=== PATIENT | female | born 1955 | race Caucasian/White ===

== ENCOUNTER 2016-09-24 13:17 | Emergency (ER) | payer BC ==
[2016-09-24] MEDS: NS 0.9% 1000 ML* 2,000 ML IV ONE ×2 (17:11→18:12)
[2016-09-24 17:18] LABS: Hematocrit 43 % (35-47); Hemoglobin 13.9 g/dl (12.0-16.0); Mean Corpuscular HGB Conc 33 g/dl (31-36); Mean Corpuscular Hemoglobin 29 pg (27-31); Mean Corpuscular Volume 90 fL (80-97); Mean Platelet Volume 11 um3 (7.4-10.4); Red Blood Count 4.75 10^6/ul (4.0-5.4); Red Cell Distribution Width 15 % (10.5-15); White Blood Count 5.7 10^3/ul (3.5-10.8)
[2016-09-24 17:34] LABS: Albumin 4.5 g/dL (3.2-5.2); BUN/Creatinine Ratio 19.5 (8-20); C Reactive Protein 2.94 mg/L (< 5.00); Calcium 9.2 mg/dL (8.6-10.3); EGFR African American 98.3 (>60); EGFR Non-African American 76.5 (>60); Globulin 2.7 g/dL (2-4); Potassium 3.6 mmol/L (3.5-5.0); Total Bilirubin 0.3 mg/dL (0.2-1.0); Total Protein 7.2 g/dL (6.4-8.9)
--- NOTE | 2016-09-24 20:43 | ED ---
Johny Whitten Michael, scribed for Kentrell Hale MD on 09/24/16 at 1703 . GI/ HPI - HPI Summary HPI Summary: 60 y/o female comes to the ED presenting with diarrhea for the last 3 weeks. The pt describes her diarrhea as "watery" and has had 9 episodes of diarrhea today. She experiences cramping if she does not have a BM. She states nml urination and denies abd pain. The pt has not recently traveled or been prescribed abx. The PMHx is significant for fibromyalgia. - History of Current Complaint Chief Complaint: EDNauseaVomitDiarrh Time Seen by Provider: 09/24/16 16:45 Stated Complaint: DIARRHEA Hx Obtained From: Patient, Medical Records Onset/Duration: Started Weeks Ago, Still Present Timing: Constant Severity: Moderate Current Severity: Moderate Pain Intensity: 0 Associated Signs and Symptoms: Positive: Diarrhea - with cramping. Negative: Abdominal Pain, UTI Symptoms - Allergy/Home Medications Allergies/Adverse Reactions: Allergies Allergy/AdvReac Type Severity Reaction Status Date / Time Sulfa Drugs Allergy Intermediate Hives Verified 09/24/16 13:19 ADHESIVES Allergy RASH, Uncoded 09/24/16 13:19 ITCHING PMH/Surg Hx/FS Hx/Imm Hx Endocrine/Hematology History: Reports: Hx Thyroid Disease - HYPO Denies: Hx Diabetes Cardiovascular History: Reports: Hx Angina, Hx Hypercholesterolemia - CONTROLLED ITH MEDS Denies: Hx Hypertension, Hx Pacemaker/ICD, Other Cardiovascular Problems/ Disorders Respiratory History: Denies: Hx Asthma, Hx Chronic Obstructive Pulmonary Disease (COPD), Other Respiratory Problems/Disorders GI History: Reports: Hx Gall Bladder Disease - CHOLICYSECTOMY, Other GI Disorders - ULCERATIVE COLITIS Denies: Hx Ulcer History: Reports: Hx Kidney Infection - IN THE PAST, Hx Kidney Stones - RIGHT KIDNEY NOW Denies: Hx Dialysis, Hx Renal Disease Musculoskeletal History: Reports: Hx Arthritis, Hx Fibromyalgia, Other Musculoskeletal History - NECK PROBLEMS Sensory History: Reports: Hx Cataracts - SHERLY, Hx Contacts or Glasses - GLASSES Denies: Hx Eye Injury, Hx Hearing Aid, Hx Hearing Problem Opthamlomology History: Reports: Hx Cataracts - SHERLY, Hx Contacts or Glasses - GLASSES Denies: Hx Eye Injury Neurological History: Reports: Hx Nerve Disease - FIBROMYALGIA, Other Neuro Impairments/Disorders - neck problems- genevieve kern md Denies: Hx Dementia, Hx Developmental Delay, Hx Headaches, Hx Migraine, Hx Seizures, Hx Spinal Cord Injury, Hx Transient Ischemic Attacks (TIA) Psychiatric History: Reports: Hx Anxiety - ON MEDS, Hx Depression - ON MEDS Denies: Hx Panic Disorder, Hx Suicide Attempt, Hx of Violent Episodes Against Others, Hx Substance Abuse - Cancer History Cancer Type, Location and Year: SKIN CANCER, basal cell and sqaumous cell Hx Chemotherapy: No Hx Radiation Therapy: No Hx Palliative Cancer Treatment: No - Surgical History Surgery Procedure, Year, and Place: LEFT AND RIGHT CARPAL TUNNEL 09/2012 , [facility] [place]. 1986, 1989, [place] GALLBLADDER, , [facility] [place] RIGHT LEG 2013. [place], [place], [place] CAT[place]ACT[place] 09/25/13 LEFT. 2013, RIGHT CATARACT, [facility] [place]. SKIN CANCER LEGS, NOSE, SHOULDER. R KNEE MENISCUS REPAIR--2012. SKIN CA-MOH'S PROCEDURE-2006 [facility] [place] Hx Anesthesia Reactions: No Infectious Disease History: Yes Infectious Disease History: Denies: Hx Clostridium Difficile, Hx Hepatitis, Hx Human Immunodeficiency Virus (HIV), Hx of Known/Suspected MRSA, Hx Shingles, Hx Tuberculosis, Hx Known/ Suspected VRE, Hx Known/Suspected VRSA, History Other Infectious Disease, Traveled Outside the [place] in Last 30 Days - Family History Known Family History: Positive: Cardiac Disease, Other - breast cancer - Social History Occupation: Employed Full-time Lives: With Family Alcohol Use: None Substance Use Type: Reports: None Smoking Status (MU): Former Smoker Type: Cigarettes Amount Used/How Often: PACK A DAY Have You Smoked in the Last Year: No Review of Systems Negative: Fever Positive: Diarrhea. Negative: Abdominal Pain Positive: no symptoms reported All Other Systems Reviewed And Are Negative: Yes Physical Exam Triage Information Reviewed: Yes Vital Signs On Initial Exam: Initial Vitals Temp Pulse Resp BP Pulse Ox 99.1 F 86 16 113/67 100 09/24/16 13:19 09/24/16 13:19 09/24/16 13:19 09/24/16 13:19 09/24/16 13:19 Vital Signs Reviewed: Yes Appearance: Positive: No Pain Distress, Obese Skin: Positive: Warm, Skin Color Reflects Adequate Perfusion, Dry, Other - tents back of hand Head/Face: Positive: Normal Head/Face Inspection Eyes: Positive: Normal ENT: Positive: Other - dry oral mucosa Neck: Positive: Supple, Nontender Respiratory/Lung Sounds: Positive: Clear to Auscultation, Breath Sounds Present Cardiovascular: Positive: RRR Abdomen Description: Positive: Nontender, Soft Bowel Sounds: Positive: Present Musculoskeletal: Positive: Normal, Other Neurological: Positive: Normal Psychiatric: Positive: Normal, Affect/Mood Appropriate Diagnostics - Vital Signs Vital Signs Temp Pulse Resp BP Pulse Ox 09/24/16 13:19 99.1 F 86 16 113/67 100 - Laboratory Lab Results: Lab Results 09/24/16 09/24/16 Range/Units 17:09 17:09 WBC 5.7 (3.5-10.8) 10^3/ul RBC 4.75 (4.0-5.4) 10^6/ul Hgb 13.9 (12.0-16.0) g/dl Hct 43 (35-47) % MCV 90 (80-97) fL MCH 29 (27-31) pg MCHC 33 (31-36) g/dl RDW 15 (10.5-15) % Plt Count 169 (150-450) 10^3/ul MPV 11 H (7.4-10.4) um3 Neut % (Auto) 51.8 (38-83) % Lymph % (Auto) 34.1 (25-47) % Mccracken % (Auto) 10.8 H (1-9) % Eos % (Auto) 2.2 (0-6) % Baso % (Auto) 1.1 (0-2) % Absolute Neuts (auto) 2.9 (1.5-7.7) 10^3/ul Absolute Lymphs (auto) 1.9 (1.0-4.8) 10^3/ul Absolute Monos (auto) 0.6 (0-0.8) 10^3/ul Absolute Eos (auto) 0.1 (0-0.6) 10^3/ul Absolute Basos (auto) 0.1 (0-0.2) 10^3/ul Absolute Nucleated RBC 0.01 10^3/ul Nucleated RBC % 0.1 Sodium 139 (133-145) mmol/L Potassium 3.6 (3.5-5.0) mmol/L Chloride 109 (101-111) mmol/L Carbon Dioxide 27 (22-32) mmol/L Anion Gap 3 (2-11) mmol/L BUN 15 (6-24) mg/dL Creatinine 0.77 (0.51-0.95) mg/dL Est GFR ( Amer) 98.3 (>60) Est GFR (Non-Af Amer) 76.5 (>60) BUN/Creatinine Ratio 19.5 (8-20) Glucose 82 (70-100) mg/dL Calcium 9.2 (8.6-10.3) mg/dL Total Bilirubin 0.30 (0.2-1.0) mg/dL AST 17 (13-39) U/L ALT 18 (7-52) U/L Alkaline Phosphatase 95 (34-104) U/L C-Reactive Protein 2.94 (< 5.00) mg/L Total Protein 7.2 (6.4-8.9) g/dL Albumin 4.5 (3.2-5.2) g/dL Globulin 2.7 (2-4) g/dL Albumin/Globulin Ratio 1.7 (1-3) Result Diagrams: 09/24/16 17:09 09/24/16 17:09 Lab Statement: Any lab studies that have been ordered have been reviewed, and results considered in the medical decision making process. GIGU Course/Dx - Course Course Of Treatment: Inessa Loco presented frustrated and fatigued from having multiple episodes of watery brown diarrhea every day for the last couple of weeks. She's had no travel recently or antibiotic use. Her fecal lactoferrin was positive for WBC's and I will treat her empirically with cipro until the cultures come back. She was rehydrated with a couple liters of NS here and felt some better. - Diagnoses Provider Diagnoses: Gastroenteritis Discharge - Discharge Plan Condition: Stable Disposition: HOME Prescriptions: Ciprofloxacin TAB* [Cipro Tab*] 500 mg PO BID #12 tab Patient Education Materials: Gastroenteritis (ED) Referrals: Mabel Rucker NP [Primary Care Provider] - Additional Instructions: You will follow up with Dr. Rucker within the next 2-3 days. If your symptoms worsen return to the ED immediately. The documentation as recorded by the Johny pena Michael accurately reflects the service I personally performed and the decisions made by me, Kentrell Hale MD.
[2016-09-24 20:59] VITALS: BP 109/66
[2016-09-24] MEDS ORDERED: Ciprofloxacin TAB* 500 MG PO ONE (21:00)
--- NOTE | 2016-09-25 07:40 | PN ---
Progress Note - Progress Note Note: immunoassay positive for fecal lactoferrin. patient placed on cipro at time of visit. appropriate treatment. nothing further indicated.
--- NOTE | 2016-09-27 07:59 | PN ---
Progress Note - Progress Note Note: Patient's cultures were positive for giardia. I called the patient on 09/27/16 to let her know a prescription had been sent to her pharmacy and she notified me that she had been called yesterday and placed on metronidazole. She has a follow-up appointment with her PCP today.
== END 2016-09-24 20:58 | disposition home or self-care (01) ==
LOC: ED 13:17
DX: K52.9 Noninfective gastroenteritis and colitis, unspecified (principal); Z87.891 Personal history of nicotine dependence; M79.7 Fibromyalgia; E03.9 Hypothyroidism, unspecified; E78.00 Pure hypercholesterolemia, unspecified; I20.9 Angina pectoris, unspecified; F41.9 Anxiety disorder, unspecified; F32.9 Major depressive disorder, single episode, unspecified; Z88.2 Allergy status to sulfonamides
CPT/HCPCS: 36415; 80053; 82272; 83630; 85025; 86140; 87045; 87046; 87328; 87329; 87493; 87899; 96360; 99284; A9270-GY